=== PATIENT | male | born 1970 | race Asian ===

== ENCOUNTER → 2020-05-21 11:14 | Outpatient (BNVA) | payer BC, SELFPAY | PROVIDERS: PCP Internal Medicine; Referring Provider Internal Medicine; Visit Provider Orthopaedic Surgery | DX: M75.41 Impingement syndrome of right shoulder (principal); M77.11 Lateral epicondylitis, right elbow | CPT/HCPCS: 20610; J1040 ==

== ENCOUNTER → 2020-06-02 15:20 | Outpatient (BNVA) | payer BC, SELFPAY | PROVIDERS: PCP Internal Medicine; Referring Provider Internal Medicine; Visit Provider Nurse Practitioner Family | DX: Z76.89 Persons encountering health services in other specified circumstances (principal) ==

== ENCOUNTER 2020-08-03 10:23 | Day surgery (SDC) | payer BC, SELFPAY ==
[2020-07-29 09:03] VITALS: BMI 31.4
--- NOTE | 2020-08-02 08:40 | P.CONAN_ITS ---
Documented by User: Nayely Cadena 08/02/20 08:41 HPI - Anesthesia Eval Consult details Narrative: 49yo M for Colonoscopy [facility] Past Medical History Medical History Anemia Asthma Malaria Obesity (BMI 30-39.9) Pilonidal cyst with abscess Vitamin B12 deficiency Family History Family History Father Diabetes Hypertension Mother Hypotension Surgical History Surgical History History of meniscectomy of left knee History of pilonidal cyst Hx of tear of meniscus of knee joint Scrotal cyst Social History Social History Are you a primary career placement specialist to a significant other at home: No Do you presently have visiting nurse or other home services: No Alcohol intake: current Alcohol intake frequency: a few times a week Smoking Status: Never smoker Use of substances other than those prescribed or required for medical reasons: No Have you been hit, kicked, punched, or otherwise hurt by someone within the past year? 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 Meds Allergies Allergy/AdvReac Type Severity Reaction Status Date / Time No Known Allergies Allergy Verified 07/29/20 08:50 [No Known Allergies*] Home Medications Medication Instructions Recorded Confirmed Type cetirizine [Zyrtec] 10 mg PO DAILY 07/29/20 07/29/20 History Exam Exam Date and Time: August 02, 2020 0840 Height,Weight and Vital Signs: Height 6 ft Weight 105.233 kg Assessment and Plan Assessment Anesthesia Assessment: Chart Reviewed Documented by User: Ananda Calles 08/03/20 12:49 [facility] Past Medical History Medical History Anemia Asthma Malaria Obesity (BMI 30-39.9) Pilonidal cyst with abscess Vitamin B12 deficiency Family History Family History Father Diabetes Hypertension Mother Hypotension Surgical History Surgical History History of meniscectomy of left knee History of pilonidal cyst Hx of tear of meniscus of knee joint Scrotal cyst Social History Social History Are you a primary career placement specialist to a significant other at home: No Do you presently have visiting nurse or other home services: No Alcohol intake: current Alcohol intake frequency: a few times a week Smoking Status: Never smoker Use of substances other than those prescribed or required for medical reasons: No Have you been hit, kicked, punched, or otherwise hurt by someone within the past year? 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 Meds Allergies Allergy/AdvReac Type Severity Reaction Status Date / Time No Known Allergies Allergy Verified 07/29/20 08:50 [No Known Allergies*] Home Medications Medication Instructions Recorded Confirmed Type cetirizine [Zyrtec] 10 mg PO DAILY 07/29/20 07/29/20 History Exam Airway Mallampati Class: II TM Dist: >3cm Neck ROM: Full Loose/Missing/Broken Teeth: No Heart: rrr+[id number] Lungs: cta b/l Assessment and Plan Assessment Anesthesia Assessment: Anesthesia Plan Discussed and PAT Visit Final Anesthetic Review NPO: Yes ASA Class: II Final Preanesthetic Review: No Changes in Pt Med Stat, Meds/Allgs Chart Reviewed, Consent Obtained/Reviewed and Anes Risks/Benef Reviewed Patient Risk: Low Procedure Risk: Low Assessment/Block/Sedation in SS: Assess/Block/Sedation-SS Anesthetic Plan Anesthetic Plan: MAC: and Agree w/ Assess. and Plan Disposition: Standard PACU
[2020-08-03 11:37] VITALS: BP 119/90; PULSE 67; RESP 18; TEMP 36.2; O2SAT 100
--- NOTE | 2020-08-03 12:59 | P.HPSUR_ITS ---
Pre-Procedural Eval Section B Chief Complaint: screening Relevant Family History (Specify if Yes): No Relevant Social History: None Present Medications: see Short Stay Collaborative assessment Medical History: Significant History (Anemia Asthma Malaria Obesity (BMI 30- 39.9) Pilonidal cyst with abscess Vitamin B12 deficiency) History of Previous Operations: Relevant previous surgery/procedure and date(s) (History of meniscectomy of left knee History of pilonidal cyst Hx of tear of meniscus of knee joint Scrotal cyst) Allergies: Allergies Allergy/AdvReac Type Severity Reaction Status Date / Time No Known Allergies Allergy Verified 07/29/20 08:50 [No Known Allergies*] Review of Systems Sugical H&P ROS: Negative: Constitution, Cardiovascular, Respiratory, Neurological, Psychiatric, Hem-Onc, Allergic/Immunologic, Gastrointestinal, Genitourinary, Musculoskeletal, Integumentary, Endocrine and Eyes/Ears/Nose/Throat Exam Surgical H&P Exam: Normal: HEENT, Normal: Heart, Normal: Lungs, Normal: Extremities, Normal: Abdomen, Normal: Skin and Normal: Neurological Plan Diagnosis/Plan: Unchanged I have reviewed the history and physical and performed a pertinent physical examination on my patient. No changes have occurred unless specified.
--- NOTE | 2020-08-03 13:00 | PM.OP ---
Brief Operative Note Date of Service: 08/03/20 Pre-op diagnosis: colon screen Post-op diagnosis: same Procedure: Operative Information Procedure Description: Colonoscopy COLONOSCOPY Instrument: Olympus variable stiffness pediatric scope 190L Colonoscopy Monitoring: Vital signs and clinical assessment, continuous EKG monitoring, Pulse oximetry, Carbon Dioxide monitoring and blood pressure monitoring were done throughout the procedure. Colon withdrawal time was 9 minutes. Procedure: The patient was placed in the left lateral decubitis position and pre-procedure medications were administered. After a digital rectal examination of the ano-rectum, the video colonoscope was inserted into the rectum and advanced through the colon to the cecum/TI. The colonoscope was slowly withdrawn in a retrograde panoramic fashion and the colon mucosa was carefully examined including a retroflexed view of the rectum. Findings and interventions are described below. Procedure Difficulty:easy Findings: Terminal Ileum-normal Cecum:normal Ascending Colon: normal Transverse Colon -normal Descending Colon: 6-8 mm sessile polyp removed with forceps Sigmoid Colon: normal Rectum: Retroflexion with small internal hemorrhoids, grade I Anorectum - normal Colon preparation: [place] Bowel Preparation Scale Right colon; 2 Transverse colon: 3 Left colon; 2 (0 = Unprepared colon segment with mucosa not seen due to solid stool that cannot be cleared. 1 = Portion of mucosa of the colon segment seen, but other areas of the colon segment not well seen due to staining, residual stool and/or opaque liquid. 2 = Minor amount of residual staining, small fragments of stool and/or opaque liquid, but mucosa of colon segment seen well. 3 = Entire mucosa of colon segment seen well with no residual staining, small fragments of stool or opaque liquid) Impression and Post Procedure Diagnosis: internal hemorrhoids polyp Plan: High fiber diet leaflet Avoid straining at stool, epsom salts and sitz bath, anusol supps or cream Repeat Colonoscopy in 5-7 years if adenoma, 10 yrs if hyperplastic polyp or earlier if clinically indicated Above findings were reviewed with the patient and relevant handouts were provided if indicated. Surgeon: Dylan Solorio MD Anesthesia: MAC Estimated blood loss (mL): 0 Condition: stable Disposition: PACU
[2020-08-03 13:52] VITALS: BP 116/71; PULSE 73; RESP 18; O2SAT 100
[2020-08-03 14:07] VITALS: BP 103/79; PULSE 91; RESP 18; O2SAT 100
--- NOTE | 2020-08-03 14:32 | HO.POSTANES ---
Post Anesthesia Evaluation Post Anesthesia Evaluation Vital Signs: Vital Signs Temp Pulse Resp BP Pulse Ox 08/03/20 14:07 97.2 F 91 18 103/79 100 08/03/20 13:52 73 18 116/71 100 08/03/20 11:37 97.2 F 67 18 119/90 H 100 Anesthesia: Monitored Mental Status: Awake Pain Control: Satisfactory Nausea/Vomiting: None Hydration: Adequate Anesthesia-Related Issues: No Anes. Related Issues
== END 2020-08-03 14:36 | disposition home or self-care (01) ==
PROVIDERS: PCP Internal Medicine; Visit Provider Internal Medicine Gastroenterology
PROC: 0DJD8ZZ Inspection of Lower Intestinal Tract, Via Natural or Artificial Opening Endoscopic (ICD-10-PCS; CPT 45378; principal; 2020-08-03 11:00)
DX: Z12.11 Encounter for screening for malignant neoplasm of colon (principal); D12.4 Benign neoplasm of descending colon; K64.0 First degree hemorrhoids; J45.909 Unspecified asthma, uncomplicated; D64.9 Anemia, unspecified; Z86.13 Personal history of malaria; Z79.899 Other long term (current) drug therapy
CPT/HCPCS: 45380; 88305

== ENCOUNTER 2021-11-30 09:07 | Outpatient (REF) | payer BC, SELFPAY ==
[2021-11-30 09:26] LABS: MANUAL DIFF FLAG NO
[2021-11-30 10:32] LABS: Basophils Absolute Auto 0.1 X10*3/uL (0.0-0.2); Eosinophils Absolute Auto 0.2 X10*3/uL (0.0-0.4); Eosinophils Percent Auto 2.9 % (0-4); Hematocrit 41.8 % (42.0-52.0); Imm Gran Abs Auto 0.03 X10*3/uL (0.00-0.03); Imm Gran Pct Auto 0.4 % (0.0-0.4); Lymphocytes Absolute Auto 2.3 X10*3/uL (1.2-4.9); Lymphocytes Percent Auto 31.9 % (20-40); Mean Corpuscular HGB Conc 33.5 g/dl (31.0-36.0); Mean Corpuscular Hemoglobin 29.4 pg (27.0-33.0); Mean Corpuscular Volume 87.6 fL (80.0-98.0); Mean Platelet Volume 9.8 fL (9.4-12.4); Monocytes Absolute Auto 0.7 X10*3/uL (0.1-1.2); Monocytes Percent Auto 8.9 % (2-11); Neutrophils Percent Auto 54.9 % (45-73); Platelet Count 322 X10*3/uL (160-400); Red Blood Count 4.77 X10*6/uL (4.60-5.80); Red Cell Distribution Width 12.4 % (11.0-16.0); White Blood Count 7.3 X10*3/uL (4.8-10.8)
[2021-11-30 11:20] LABS: Estimated Average Glucose 114 mg/dL; Hemoglobin A1c % 5.6 %
[2021-11-30 11:24] LABS: Alanine Aminotransferase 27 U/L (0-40); Albumin Level 4.3 g/dL (3.5-5.0); Alkaline Phosphatase 60 U/L (39-117); Anion Gap 13 (12-20); Aspartate Amino Transferase 22 U/L (5-37); Bilirubin Total 0.9 mg/dL (0.0-1.0); Blood Urea Nitrogen 13 mg/dL (9-16); Calcium 9.9 mg/dL (8.4-10.2); Carbon Dioxide 29 mmol/L (22-29); Chloride 102 mmol/L (96-108); Cholesterol 203 mg/dL; Estimated Glomerular Filt Rate > 60; Glucose Random 96 mg/dL (60-115); HDL Cholesterol 46 mg/dL; LDL Cholesterol Calculated 145 mg/dl; Potassium 4.7 mmol/L (3.3-5.1); Sodium 139 mmol/L (135-145); Total Protein 7.6 g/dL (6.5-8.0); Triglycerides 63 mg/dL
[2021-11-30 11:32] LABS: Free T4 (Free Thyroxine) 0.95 ng/dL (0.71-1.85); Prostate Specific Antigen Scr 0.34 ng/mL (<0.05-4.0); Thyroid Stimulating Hormone 1.51 uIU/mL (0.32-4.0); Vitamin D 25-OH Total 17.9 ng/mL (>30)
[2021-11-30 11:45] LABS: Folate 7.7 ng/mL (> or = 4.0); Vitamin B12 201 pg/mL (200-900)
[2021-12-06 02:00] LABS: Testosterone, Total 432 ng/dL (250-1100)
== END 2021-11-30 09:08 | disposition home or self-care (01) ==
LOC: HO.LAB 09:07
PROVIDERS: PCP Internal Medicine; Visit Provider Internal Medicine
DX: Z12.5 Encounter for screening for malignant neoplasm of prostate (principal); D51.3 Other dietary vitamin B12 deficiency anemia; E66.9 Obesity, unspecified; L50.8 Other urticaria; E78.00 Pure hypercholesterolemia, unspecified
CPT/HCPCS: 36415; 80053; 80061; 82306; 82607; 82746; 83036; 84153; 84403; 84439; 84443; 85025

== ENCOUNTER 2022-09-05 10:01 | Outpatient (REF) | payer BC, SELFPAY ==
[2022-09-05 10:18] LABS: MANUAL DIFF FLAG NO
[2022-09-05 10:49] LABS: Basophils Absolute Auto 0.1 X10*3/uL (0.0-0.2); Basophils Percent Auto 1.1 % (0-2); Eosinophils Absolute Auto 0.3 X10*3/uL (0.0-0.4); Eosinophils Percent Auto 4.3 % (0-4); Hematocrit 39.3 % (42.0-52.0); Hemoglobin 12.9 g/dl (14.0-18.0); Imm Gran Abs Auto 0.05 X10*3/uL (0.00-0.03); Imm Gran Pct Auto 0.6 % (0.0-0.4); Lymphocytes Absolute Auto 2.8 X10*3/uL (1.2-4.9); Lymphocytes Percent Auto 34.8 % (20-40); Mean Corpuscular HGB Conc 32.8 g/dl (31.0-36.0); Mean Corpuscular Hemoglobin 28.4 pg (27.0-33.0); Mean Corpuscular Volume 86.6 fL (80.0-98.0); Mean Platelet Volume 9.3 fL (9.4-12.4); Monocytes Absolute Auto 0.6 X10*3/uL (0.1-1.2); Monocytes Percent Auto 8.1 % (2-11); Neutrophils Absolute Auto 4.1 x10*3/uL (2.0-8.3); Neutrophils Percent Auto 51.1 % (45-73); Platelet Count 341 X10*3/uL (160-400); Red Blood Count 4.54 X10*6/uL (4.60-5.80); Red Cell Distribution Width 12.7 % (11.0-16.0)
[2022-09-05 10:55] LABS: Estimated Average Glucose 114 mg/dL; Hemoglobin A1c % 5.6 %
[2022-09-05 11:31] LABS: Alanine Aminotransferase 21 U/L (0-40); Alkaline Phosphatase 58 U/L (39-117); Anion Gap 13 (12-20); Aspartate Amino Transferase 16 U/L (5-37); Bilirubin Total 0.4 mg/dL (0.0-1.0); Blood Urea Nitrogen 11 mg/dL (9-16); Calcium 9.2 mg/dL (8.4-10.2); Carbon Dioxide 28 mmol/L (22-29); Chloride 104 mmol/L (96-108); Cholesterol 173 mg/dL; Estimated Glomerular Filt Rate > 60; Glucose Random 94 mg/dL (60-115); HDL Cholesterol 37 mg/dL; LDL Cholesterol Calculated 108 mg/dl; Potassium 4.7 mmol/L (3.3-5.1); Sodium 140 mmol/L (135-145); Total Protein 6.8 g/dL (6.5-8.0); Triglycerides 142 mg/dL
[2022-09-05 12:00] LABS: Folate 5.5 ng/mL (> or = 4.0); Free T4 (Free Thyroxine) 0.88 ng/dL (0.71-1.85); Prostate Specific Antigen Scr 0.39 ng/mL (<0.05-4.0); Thyroid Stimulating Hormone 2.35 uIU/mL (0.32-4.0); Vitamin B12 434 pg/mL (200-900); Vitamin D 25-OH Total 22.2 ng/mL (>30)
[2022-09-05 12:16] LABS: Erythrocyte Sedimentation Rate 9 MM/HR (0-15)
== END 2022-09-05 10:02 | disposition home or self-care (01) ==
LOC: HO.LAB 10:01
PROVIDERS: PCP Internal Medicine; Visit Provider Internal Medicine
DX: D51.3 Other dietary vitamin B12 deficiency anemia (principal); R73.01 Impaired fasting glucose; E53.8 Deficiency of other specified B group vitamins; E78.00 Pure hypercholesterolemia, unspecified; Z12.5 Encounter for screening for malignant neoplasm of prostate
CPT/HCPCS: 36415; 80053; 80061; 82306; 82607; 82746; 83036; 84153; 84439; 84443; 85025; 85652

== ENCOUNTER 2023-09-13 08:35 | Outpatient (REF) | payer BC, SELFPAY ==
[2023-09-13 08:50] LABS: MANUAL DIFF FLAG NO
[2023-09-13 09:36] LABS: Basophils Absolute Auto 0.1 X10*3/uL (0.0-0.2); Basophils Percent Auto 1.1 % (0-2); Eosinophils Absolute Auto 0.3 X10*3/uL (0.0-0.4); Eosinophils Percent Auto 3.8 % (0-4); Hematocrit 41.7 % (42.0-52.0); Hemoglobin 13.9 g/dl (14.0-18.0); Imm Gran Abs Auto 0.02 X10*3/uL (0.00-0.03); Imm Gran Pct Auto 0.3 % (0.0-0.4); Immature Retic Fraction 9.5 % (2.3-13.4); Lymphocytes Absolute Auto 2.5 X10*3/uL (1.2-4.9); Lymphocytes Percent Auto 35.3 % (20-40); Mean Corpuscular HGB Conc 33.3 g/dl (31.0-36.0); Mean Corpuscular Hemoglobin 29.8 pg (27.0-33.0); Mean Corpuscular Volume 89.3 fL (80.0-98.0); Monocytes Absolute Auto 0.6 X10*3/uL (0.1-1.2); Monocytes Percent Auto 8.1 % (2-11); Neutrophils Absolute Auto 3.6 x10*3/uL (2.0-8.3); Neutrophils Percent Auto 51.4 % (45-73); Platelet Count 305 X10*3/uL (160-400); Red Blood Count 4.67 X10*6/uL (4.60-5.80); Red Cell Distribution Width 12.3 % (11.0-16.0); Retic HGB Equivalent 34.6 pg (30.0-35.0); Reticulocyte Percent 1.3 % (0.5-1.8); White Blood Count 7.1 X10*3/uL (4.8-10.8)
[2023-09-13 10:10] LABS: Alanine Aminotransferase 25 U/L (0-40); Albumin Level 4.3 g/dL (3.5-5.0); Alkaline Phosphatase 63 U/L (39-117); Anion Gap 11 (12-20); Aspartate Amino Transferase 17 U/L (5-37); Bilirubin Total 0.5 mg/dL (0.0-1.0); Blood Urea Nitrogen 12 mg/dL (9-16); Calcium 9.3 mg/dL (8.4-10.2); Carbon Dioxide 28 mmol/L (22-29); Chloride 106 mmol/L (96-108); Cholesterol 200 mg/dL (<200); Estimated Glomerular Filt Rate > 60; Glucose Random 105 mg/dL (60-115); HDL Cholesterol 44 mg/dL (>40); Iron 98 mcg/dL (45-160); LDL Cholesterol Calculated 137 mg/dL (<100); Percent Iron Saturation 34 % (15-50); Potassium 4.7 mmol/L (3.3-5.1); Sodium 140 mmol/L (135-145); Total Iron Binding Capacity 292 mcg/dL (228-428); Total Protein 7.6 g/dL (6.5-8.0); Triglycerides 98 mg/dL (<150); Unsaturated Iron Binding 194 ug/dL
[2023-09-13 10:30] LABS: Ferritin 161 ng/mL (20-250); Free T4 (Free Thyroxine) 0.94 ng/dL (0.71-1.85); Thyroid Stimulating Hormone 2.24 uIU/mL (0.32-4.0)
[2023-09-13 10:39] LABS: Folate 7.3 ng/mL (> or = 4.0); Prostate Specific Antigen Scr 0.52 ng/mL (<0.05-4.0); Vitamin B12 309 pg/mL (200-900)
== END 2023-09-13 08:36 | disposition home or self-care (01) ==
LOC: HO.LAB 08:35
PROVIDERS: PCP Internal Medicine; Visit Provider Internal Medicine
DX: E78.00 Pure hypercholesterolemia, unspecified (principal); D51.3 Other dietary vitamin B12 deficiency anemia; Z12.5 Encounter for screening for malignant neoplasm of prostate
CPT/HCPCS: 36415; 80053; 80061; 82607; 82728; 82746; 83540; 84153; 84439; 84443; 85025; 85045

== ENCOUNTER 2023-09-17 17:33 | Outpatient (AMB) | payer BC, SELFPAY ==
--- NOTE | 2023-09-17 17:36 | MHC.PC.OV ---
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 Accompanied by: Self / Same As Patient Allergies No Known Allergies [No Known Allergies*] Allergy (Verified 09/17/23 17:43) Medication List - Last Reconciled 09/17/23 by Radha Wood MD ferrous gluconate (Fergon) 240 mg PO DAILY Tobacco use date assessed: 09/17/23 Dental Screening Dental Screen Date: 09/17/23 Did you have a dental visit in the last 12 months?: Yes Did you have a dental problem in the last 6 months where you did not have access to dental care?: No Was dental information given to patient?: Patient has dentist HPI Annual PE HPI Details 52-year-old obese male with a history of hypercholesterolemia , B12 deficiency, vitamin-D deficiency chronic urticaria coming in for physical exam last seen last year in August. Patient's last colonoscopy was done in July 2020 5 years. [facility] Medical History (Updated 09/04/22 @ 17:41 by Radha Wood MD) Lateral epicondylitis, right elbow Rotator cuff impingement syndrome of right shoulder Shoulder pain, right Allergic reaction Obesity (BMI 30-39.9) Anemia Annual physical exam Vitamin B12 deficiency Pilonidal cyst with abscess Malaria Asthma Surgical History Scrotal cyst History of pilonidal cyst History of meniscectomy of left knee Hx of tear of meniscus of knee joint Family History Father Diabetes Hypertension Mother Hypotension Daughter Bipolar 1 disorder Social History (Updated 09/17/23 @ 18:07 by Radha Wood MD) Housing: House Are you a primary director of healthcare systems to a significant other at home: No Do you presently have visiting nurse or other home services: No Alcohol intake: current Alcohol intake frequency: a few times a week Comment: 2x a week 1-2 drinks Patient Tobacco Use Status: Former Tobacco user Tobacco use type: Cigarette Years Smoked: quit 1999 e-Cigarette/Vaping Use: Never Used Second Hand Smoke Exposure: No service: No Current occupational status: employed 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 1. Little interest or pleasure in doing things: not at all 2. Feeling down, depressed, or hopeless: not at all 3. Trouble falling or staying asleep, or sleeping too much: not at all 4. Feeling tired or having little energy: not at all 5. Poor appetite or overeating: not at all 6. Feeling bad about yourself - or that you are a failure or have let yourself or your family down: not at all 7. Trouble concentrating on things, such as reading the newspaper or watching television: not at all 8. Moving or speaking so slowly that other people could have noticed. Or the opposite - being so fidgety or restless that you have been moving around a lot more than usual: not at all 9. Thoughts that you would be better off or of hurting yourself in some way: not at all Total score: 0 Source: Developed by Drs. Marvin Gomez, Sharon Meneses, Rolando Ceron and colleagues, with an educational aditi from [employer]. Thrive Questionnaire Date Thrive assessed: 09/17/23 I am a: Patient What is your living situation today?: I have a steady place to live Within the past 12 months, did the food you bought not last and you didn't have the money to get more?: Never true Within the past 12 months, did you worry whether your food would run out before you got money to buy more?: Never true Do you have trouble paying for medicines?: No Do you have trouble getting transportation to medical appointments?: No Do you have trouble paying your heating and electricity bill?: No Do you have trouble taking care of your child, family member or friend?: No Do you have trouble with day-to-day activities such as bathing, preparing meals, shopping, managing finances, etc.?: No Are you currently unemployed and looking for a job?: No Are you interested in more education?: No Please select the resources that you would like help with: None Currently or been in a relationship where the following occur: no concerns reported THRIVE Score: 0 AUDIT C Alcohol Use Questionnaire (AUDIT-C) 1. How often do you have a drink containing alcohol?: Monthly or less 2. How many drinks containing alcohol do you have on a typical day when you are drinking?: 1 or 2 3. How often do you have six or more drinks on one occasion?: Never Total Score: 1 TON-7 AMB Questionnaire TON-7 Date TON - 7 assessed: 09/17/23 Feeling nervous, anxious, or on edge: 0 = Not at all Not being able to stop or control worryin = Not at all Worrying too much about different things: 0 = Not at all Trouble relaxin = Not at all Being so restless that it is hard to sit still: 0 = Not at all Becoming easily annoyed or irritable: 0 = Not at all Feeling afraid as if something awful might happen: 0 = Not at all Total TON-7 score (0-4 normal; 5-9 mild; 10-14 moderate; 15-21 severe): 0 Source: Developed by Drs. Marvin Gomez, Sharon Meneses, Rolando Ceron and colleagues, with an educational aditi from [employer]. Review of Systems Const Denies poor appetite and Denies weakness Eyes Denies no additional complaints ENT Reports Normal hearing present, Denies dizziness, Denies nasal congestion, Denies tinnitus and Denies sore throat Card Denies chest pain, Denies syncope, Denies rapid heart rate and Denies dyspnea Resp Denies cough and Denies dyspnea GI Denies change in stool character, Reports constipation, Denies diarrhea, Denies nausea and Denies vomiting Denies dysuria and Denies urinary frequency Neuro Reports Normal hearing present, Denies confusion, Denies dizziness, Denies syncope and Denies weakness Psych Denies confusion Physical exam (Primary Care) Vital Signs: Last Vital Signs BP 130/82 09/17/23 17:40 BMI result Body Mass Index 31.6 Tobacco/Smoking Status: Tobacco use Status Tobacco use date assessed 09/17/23 09/17/23 17:46 Patient Tobacco Use Status Former Tobacco user 09/17/23 17:40 Tobacco use type Cigarette 09/17/23 17:40 e-Cigarette/Vaping Use Never Used 09/17/23 17:40 PHQ-9: PHQ-9 Score PHQ-9: Total score 0 09/17/23 17:40 Thrive Assessment: Date of Thrive Assessment Date Thrive assessed 09/17/23 09/17/23 17:40 Currently or been in a relationship where the following occur: no concerns reported Const General: alert; No acute distress or confusion Orientation/consciousness: No confusion HENMT Head: Yes normocephalic Ears: external ears normal and TM's normal bilaterally Face and sinus: Yes normal facial exam Mouth: moist mucous membranes Throat: Yes tonsils normal Eyes Conjunctivae: conjunctivae normal Pupils: Equal, round and reactive pupils present and Pupil accommodation reflex normal Direct Ophthalmoscopy: normal light reflex Neck Neck: No lymphadenopathy Thyroid: Thyroid normal Chest Chest palpation & inspection: normal inspection of the chest Resp Effort & Inspection: normal respiratory effort and no audible wheezes Auscultation: clear to auscultation bilaterally Cardio Rate: regular rate Rhythm: regular rhythm Peripheral pulses: radial pulses present and dorsalis pedis present GI Other: guaiac negative , prostate N Inspection: Yes normal to inspection Palpation (GI): no masses Auscultation: normal bowel sounds and normoactive bowel sounds Male General Exam: Yes normal external exam Skin General skin exam: no rashes or lesions noted Rashes: no rashes Neuro General: deep tendon reflexes 2+ bilaterally and No confusion Cranial nerves: Yes Equal, round and reactive pupils present, Yes Midline tongue present, Yes Normal hearing present and Yes Ability to bilaterally elevate shoulders present Cognition (Neuro): normal cognition Gait exam (Neuro): Normal gait present Motor exam (neuro): 5/5 motor strength present throughout Deep tendon reflexes (DTR's): Right brachioradialis reflex intensity grade: 2+, Left brachioradialis reflex intensity grade: 2+, Right patellar reflex intensity grade: 2+ and Left patellar reflex intensity grade: 2+ Extrem General: Yes normal to inspection and No edema Assessment and Plan Assessment & Plan (1) Annual physical exam: Code(s): Z00.00 - Encounter for general adult medical examination without abnormal findings (2) Impaired fasting blood sugar: Code(s): R73.01 - Impaired fasting glucose Plan: Decrease the amount of carbohydrate intake, pasta, bread, rice and potatoes are all sugar and that is aside from all the sweet stuff, remember that fruits are good but they are Sweet also. (3) Hypercholesteremia: Code(s): E78.00 - Pure hypercholesterolemia, unspecified Plan: Avoid fried foods, chicken skin, eggs, butter margarine, pastries and meat. Be it pork or beef they have a lot of cholesterol LDL goal of less than 130 and triglyceride of less than 150 (4) Anemia: Code(s): D64.9 - Anemia, unspecified Qualifiers: Anemia type: B12 deficiency Vitamin B12 deficiency anemia type: other dietary B12 deficiency Qualified Code(s): D51.3 - Other dietary vitamin B12 deficiency anemia Plan: Chronic and improved/stable (5) Obesity (BMI 30-39.9): Code(s): E66.9 - Obesity, unspecified Plan: Diet and exercise Orders: Orders Complete Blood Count Auto Diff 09/13/23 E78.00 - Pure hypercholesterolemia, unspecified Free T4 (Free Thyroxine) 09/13/23 E78.00 - Pure hypercholesterolemia, unspecified Reticulocyte Count 09/13/23 E78.00 - Pure hypercholesterolemia, unspecified Complete Blood Count Auto Diff 6 Months D51.3 - Other dietary vitamin B12 deficiency anemia Thyroid Stimulating Hormone 09/13/23 E78.00 - Pure hypercholesterolemia, unspecified Vitamin B12 and Folate 09/13/23 E78.00 - Pure hypercholesterolemia, unspecified Lipid Panel 09/13/23 E78.00 - Pure hypercholesterolemia, unspecified IRON PROFILE 09/13/23 E78.00 - Pure hypercholesterolemia, unspecified Ferritin 09/13/23 E78.00 - Pure hypercholesterolemia, unspecified Prostate Specific Antigen Scr 09/13/23 E78.00 - Pure hypercholesterolemia, unspecified Comprehensive Met. Panel 09/13/23 E78.00 - Pure hypercholesterolemia, unspecified Hemoglobin A1c 6 Months E78.00 - Pure hypercholesterolemia, unspecified Comprehensive Met. Panel 6 Months E78.00 - Pure hypercholesterolemia, unspecified Lipid Panel 6 Months E78.00 - Pure hypercholesterolemia, unspecified Coding Level of Care Code Est Pt Prev Care 40-64y([id number]) Diagnoses Annual physical exam Z00.00 Impaired fasting blood sugar R73.01 Hypercholesteremia E78.00 Other dietary vitamin B12 deficiency anemia D51.3 Anemia type: B12 deficiency Vitamin B12 deficiency anemia type: other dietary B12 deficiency Obesity (BMI 30-39.9) E66.9
[2023-09-17 17:40] VITALS: BP 130/82; BMI 31.6
== END 2023-09-17 18:27 | disposition home or self-care (01) ==
PROVIDERS: Visit Provider Internal Medicine
DX: Z00.00 Encounter for general adult medical examination without abnormal findings (principal); E66.9 Obesity, unspecified; Z68.31 Body mass index [BMI] 31.0-31.9, adult; R73.01 Impaired fasting glucose; E78.00 Pure hypercholesterolemia, unspecified; D51.3 Other dietary vitamin B12 deficiency anemia
CPT/HCPCS: 99396

== ENCOUNTER 2024-04-01 09:51 | Outpatient (REF) | payer BC, SELFPAY ==
[2024-04-01 10:02] LABS: MANUAL DIFF FLAG NO
[2024-04-01 10:54] LABS: Basophils Absolute Auto 0.1 X10*3/uL (0.0-0.2); Basophils Percent Auto 1.2 % (0-2); Eosinophils Absolute Auto 0.3 X10*3/uL (0.0-0.4); Eosinophils Percent Auto 3.4 % (0-4); Hematocrit 39.6 % (42.0-52.0); Hemoglobin 13.6 g/dl (14.0-18.0); Imm Gran Abs Auto 0.05 X10*3/uL (0.00-0.03); Imm Gran Pct Auto 0.7 % (0.0-0.4); Lymphocytes Absolute Auto 2.8 X10*3/uL (1.2-4.9); Lymphocytes Percent Auto 36.3 % (20-40); Mean Corpuscular HGB Conc 34.3 g/dl (31.0-36.0); Mean Corpuscular Volume 87.4 fL (80.0-98.0); Mean Platelet Volume 9.6 fL (9.4-12.4); Monocytes Absolute Auto 0.6 X10*3/uL (0.1-1.2); Monocytes Percent Auto 7.2 % (2-11); Neutrophils Absolute Auto 3.9 x10*3/uL (2.0-8.3); Neutrophils Percent Auto 51.2 % (45-73); Platelet Count 318 X10*3/uL (160-400); Red Blood Count 4.53 X10*6/uL (4.60-5.80); Red Cell Distribution Width 11.9 % (11.0-16.0); White Blood Count 7.6 X10*3/uL (4.8-10.8)
[2024-04-01 11:27] LABS: Estimated Average Glucose 117 mg/dL; Hemoglobin A1c % 5.7 % (<6.0)
[2024-04-01 11:49] LABS: Alanine Aminotransferase 25 U/L (0-40); Albumin Level 4.1 g/dL (3.5-5.0); Alkaline Phosphatase 56 U/L (39-117); Anion Gap 10 (12-20); Aspartate Amino Transferase 18 U/L (5-37); Bilirubin Total 0.4 mg/dL (0.0-1.0); Blood Urea Nitrogen 9 mg/dL (9-16); Calcium 9.2 mg/dL (8.4-10.2); Carbon Dioxide 27 mmol/L (22-29); Chloride 105 mmol/L (96-108); Cholesterol 162 mg/dL (<200); Estimated Glomerular Filt Rate > 60; Glucose Random 98 mg/dL (60-115); HDL Cholesterol 33 mg/dL (>40); LDL Cholesterol Calculated 100 mg/dL (<100); Potassium 4.3 mmol/L (3.3-5.1); Sodium 138 mmol/L (135-145); Total Protein 7.2 g/dL (6.5-8.0); Triglycerides 145 mg/dL (<150)
== END 2024-04-01 09:52 | disposition home or self-care (01) ==
LOC: HO.LAB 09:51
PROVIDERS: PCP Internal Medicine; Visit Provider Internal Medicine
DX: D51.3 Other dietary vitamin B12 deficiency anemia (principal); E78.00 Pure hypercholesterolemia, unspecified; Z13.1 Encounter for screening for diabetes mellitus
CPT/HCPCS: 36415; 80053; 80061; 83036; 85025

== ENCOUNTER 2024-09-22 17:37 | Outpatient (AMB) | payer BC, SELFPAY ==
[2024-09-22 17:39] VITALS: BP 118/86; PULSE 96; O2SAT 97; BMI 31.6
--- NOTE | 2024-09-22 17:39 | A.OFFPC_ITS ---
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 Required: No Accompanied by: Self / Same As Patient Allergies No Known Allergies [No Known Allergies*] Allergy (Verified 09/22/24 17:46) Medication List - Last Reconciled 09/22/24 by Radha Wood MD cholecalciferol (vitamin D3) 25 mcg PO DAILY ferrous gluconate 236 mg PO DAILY varicella-zoster gE-AS01B (PF) 50 mcg/0.5 mL (Shingrix (PF)) 50 mcg IM ONCE 1 day vitamin B complex 1 cap PO DAILY Tobacco use date assessed: 09/22/24 Dental Screening Dental Screen Date: 09/22/24 Did you have a dental visit in the last 12 months?: Yes Did you have a dental problem in the last 6 months where you did not have access to dental care?: No Was dental information given to patient?: Patient has dentist HPI annual exam HPI Details occ l knee pain PFSH Medical History (Updated 09/04/22 @ 17:41 by Radha Wood MD) Lateral epicondylitis, right elbow Rotator cuff impingement syndrome of right shoulder Shoulder pain, right Allergic reaction Obesity (BMI 30-39.9) Anemia Annual physical exam Vitamin B12 deficiency Pilonidal cyst with abscess [place] Asthma Surgical History Scrotal cyst History of pilonidal cyst History of meniscectomy of left knee Hx of tear of meniscus of knee joint Family History Father Diabetes Hypertension Mother Hypotension Daughter Bipolar 1 disorder Social History (Updated 09/22/24 @ 17:59 by Radha Wood MD) Housing: House Are you a primary medicare sales representative to a significant other at home: No Do you presently have visiting nurse or other home services: No Alcohol intake: current Alcohol intake frequency: a few times a week Comment: once a week 2 drinks Patient Tobacco Use Status: Former Tobacco user Tobacco use type: Cigarette Years Smoked: quit 1999 e-Cigarette/Vaping Use: Never Used Second Hand Smoke Exposure: No service: No Current occupational status: employed 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 1. Little interest or pleasure in doing things: not at all 2. Feeling down, depressed, or hopeless: not at all 3. Trouble falling or staying asleep, or sleeping too much: not at all 4. Feeling tired or having little energy: not at all 5. Poor appetite or overeating: not at all 6. Feeling bad about yourself - or that you are a failure or have let yourself or your family down: not at all 7. Trouble concentrating on things, such as reading the newspaper or watching television: not at all 8. Moving or speaking so slowly that other people could have noticed. Or the opposite - being so fidgety or restless that you have been moving around a lot more than usual: not at all 9. Thoughts that you would be better off or of hurting yourself in some way: not at all Total score: 0 Depression Screening Interpretation: Negative Depression Screening Done: Yes Source: Developed by Drs. Marvin Gomez, Sharon Meneses, Rolando Ceron and colleagues, with an educational aditi from [employer]. Thrive Questionnaire Date Thrive assessed: 09/15/24 I am a: Patient What is your living situation today?: I have a steady place to live Within the past 12 months, did the food you bought not last and you didn't have the money to get more?: Never true Within the past 12 months, did you worry whether your food would run out before you got money to buy more?: Never true Do you have trouble paying for medicines?: No Do you have trouble getting transportation to medical appointments?: No Do you have trouble paying your heating and electricity bill?: No Do you have trouble taking care of your child, family member or friend?: No Do you have trouble with day-to-day activities such as bathing, preparing meals, shopping, managing finances, etc.?: No Are you currently unemployed and looking for a job?: No Are you interested in more education?: No Please select the resources that you would like help with: None Currently or been in a relationship where the following occur: No concerns reported THRIVE Score: 0 AUDIT C Alcohol Use Questionnaire (AUDIT-C) 1. How often do you have a drink containing alcohol?: 2-3 times a week 2. How many drinks containing alcohol do you have on a typical day when you are drinking?: 1 or 2 3. How often do you have six or more drinks on one occasion?: Never Total Score: 3 TON-7 AMB Questionnaire TON-7 Date TON - 7 assessed: 09/22/24 Feeling nervous, anxious, or on edge: 0 = Not at all Not being able to stop or control worryin = Not at all Worrying too much about different things: 0 = Not at all Trouble relaxin = Not at all Being so restless that it is hard to sit still: 0 = Not at all Becoming easily annoyed or irritable: 0 = Not at all Feeling afraid as if something awful might happen: 0 = Not at all Total TON-7 score (0-4 normal; 5-9 mild; 10-14 moderate; 15-21 severe): 0 Source: Developed by Drs. Marvin Gomez, Sharon Meneses, Rolando Ceron and colleagues, with an educational aditi from [employer]. Review of Systems Const Denies poor appetite and Denies weakness Eyes Denies no additional complaints ENT Reports Normal hearing present, Denies dizziness, Denies nasal congestion, Denies tinnitus and Denies sore throat Card Denies chest pain, Denies syncope, Denies rapid heart rate and Denies dyspnea Resp Denies cough and Denies dyspnea GI Denies change in stool character, Reports constipation, Denies diarrhea, Denies nausea and Denies vomiting Denies dysuria and Denies urinary frequency Neuro Reports Normal hearing present, Denies confusion, Denies dizziness, Denies s yncope and Denies weakness Psych Denies confusion Physical exam (Primary Care) Tobacco/Smoking Status: Tobacco use Status Tobacco use date assessed 09/17/23 09/17/23 17:46 Patient Tobacco Use Status Former Tobacco user 09/17/23 18:07 Tobacco use type Cigarette 09/17/23 18:07 e-Cigarette/Vaping Use Never Used 09/17/23 18:07 Depression Screening Interpretation: Negative Thrive Assessment: Date of Thrive Assessment Date Thrive assessed 09/15/24 09/15/24 12:01 Currently or been in a relationship where the following occur: No concerns reported Const General: No confusion Orientation/consciousness: No confusion HENMT Head: Yes normocephalic Ears: external ears normal and TM's normal bilaterally Face and sinus: Yes normal facial exam Mouth: moist mucous membranes Throat: Yes tonsils normal Eyes Conjunctivae: conjunctivae normal Pupils: Equal, round and reactive pupils present and Pupil accommodation reflex normal Direct Ophthalmoscopy: normal light reflex Neck Neck: No lymphadenopathy Thyroid: Thyroid normal Chest Chest palpation & inspection: normal inspection of the chest Resp Effort & Inspection: normal respiratory effort and no audible wheezes Auscultation: clear to auscultation bilaterally, no crackles, no wheezes and lung sounds not diminished Cardio Rate: regular rate Rhythm: regular rhythm Peripheral pulses: radial pulses present and dorsalis pedis present GI Other: guaiac neg prostate N Palpation (GI): no masses Auscultation: normal bowel sounds and normoactive bowel sounds Male General Exam: Yes normal external exam Skin General skin exam: no rashes or lesions noted Rashes: no rashes Neuro General: No confusion Cranial nerves: Yes Equal, round and reactive pupils present and Yes Normal hearing present Cognition (Neuro): normal cognition Gait exam (Neuro): Normal gait present Motor exam (neuro): 5/5 motor strength present throughout Deep tendon reflexes (DTR's): Right brachioradialis reflex intensity grade: 2+, Left brachioradialis reflex intensity grade: 2+, Right patellar reflex intensity grade: 2+ and Left patellar reflex intensity grade: 2+ Extrem General: No edema Coding Level of Care Code Est Pt Prev Care 40-64y(55356) Diagnoses Annual physical exam Z00.00 Obesity (BMI 30-39.9) E66.9 Other dietary vitamin B12 deficiency anemia D51.3 Anemia type: B12 deficiency Vitamin B12 deficiency anemia type: other dietary B12 deficiency Impaired fasting blood sugar R73.01 Hypercholesteremia E78.00 Assessment & Plan Assessment & Plan (1) Annual physical exam: Code(s): Z00.00 - Encounter for general adult medical examination without abnormal findings Category: Medical Plan: Patient is advised to eat healthy, keep well hydrated, keep active and have adequate sleep. (2) Obesity (BMI 30-39.9): Code(s): E66.9 - Obesity, unspecified Category: Medical Plan: Diet and exercise (3) Anemia: Code(s): D64.9 - Anemia, unspecified Category: Medical Qualifiers: Anemia type: B12 deficiency Vitamin B12 deficiency anemia type: other dietary B12 deficiency Qualified Code(s): D51.3 - Other dietary vitamin B12 deficiency anemia Plan: Continue to monitor (4) Impaired fasting blood sugar: Code(s): R73.01 - Impaired fasting glucose Category: Medical Plan: Decrease the amount of carbohydrate intake, pasta, bread, rice and potatoes are all sugar and that is aside from all the sweet stuff, remember that fruits are good but they are Sweet also. (5) Hypercholesteremia: Code(s): E78.00 - Pure hypercholesterolemia, unspecified Category: Medical Plan: Avoid fried foods, chicken skin, eggs, butter margarine, pastries and meat. Be it pork or beef they have a lot of cholesterol LDL goal of less than 130 and triglyceride of less than 150. This has improved Plan History of Present Illness The patient is a 53-year-old male presenting for his annual physical examination and addressing concerns about potential repeat knee surgery. His medical history includes obesity, chronic anemia, hypercholesterolemia, glucose tolerance a bnormality, and chronic urticaria. A recent blood test indicated mild chronic anemia, but liver function, platelet count, white blood cell count, electrolyte levels, and fasting blood sugar were normal. Hemoglobin A1c was marginally elevated, and cholesterol levels showed improvement, with LDL reduced to 100 mg/dL. His left knee, which underwent a meniscus repair about five years ago, continues to experience swelling and pain, suggesting the potential need for revision surgery. The patient supplements his diet with iron and vitamin D but denies any medication use. Health Maintenance - Cholesterol management with a focus on maintaining LDL levels below 130 mg/dL and triglycerides below 150 mg/dL. - Continued dietary interventions and exercise encouraged for weight management and glucose regulation. - Discussion on the shingles vaccine (Shingrix), indicating its administration typically begins at age 60 but could be considered earlier in specific cases. - Encouraged the patient to stay hydrated, drink 6-8 glasses of water daily, and maintain a balanced diet. - Recommended regular physical activity and exercise irrespective of weather changes. - Suggestion for an eye examination, as it has been two years since the last. - Awareness of norovirus and necessary hygiene practices to mitigate colds. Social History - Alcohol: Consumes alcohol once a week, averaging two drinks per session. - Tobacco: No current use of cigarettes. - Recreational Drugs: Denies use. - Physical Activity: Previously active, but currently less engaged; owns home gym equipment and cycling gear. - Nutrition: Uses vitamin and iron supplements; adheres to dietary interventions as part of the wellness plan. Review of Systems - General: Denies fever, chills, or significant weight change. - Skin: No rashes or lesions reported. - Cardiovascular: Denies chest pain or palpitations. - Respiratory: Denies dyspnea or persistent cough. - Gastrointestinal: No nausea, vomiting, diarrhea, or constipation. - Musculoskeletal: Reports swelling and possible need for further intervention on the left knee. - Neurological: Denies dizziness, headache, or sensory changes. Physical Exam General: Cooperative, healthy appearing, comfortable, no acute distress and well developed Orientation: Patient oriented x3 Limitations: No limitations Head: Normal to inspection Ears: Hearing grossly normal bilaterally Nose: Normal external nose present Face and sinus: Normal facial exam Eyes: Appearance normal, both eyes and all related structures Neck: Normal visual inspection and Yes full ROM Respiratory: Normal respiratory effort and able to speak in complete sentences. Clear to auscultation bilaterally Cardiovascular: Regular rate and rhythm. Normal S1 and S2 GI: Normal to inspection. Soft to palpation and nontender Skin: No rashes or lesions noted Neuro: Patient oriented x3 Extremities: Normal to inspection, but noted swelling in the left knee, possibly requiring further evaluation. Results - Labs: Mild chronic anemia present; normal platelet, white blood cells, electrolytes, liver function; fasting blood sugar of 98 mg/dL; border hemoglobin A1c at 5.7%; total cholesterol reduced to 162 mg/dL; LDL at 100 mg/dL. Plan I will continue to monitor the patient's chronic anemia with routine blood work. While managing his cholesterol, I will keep up with dietary interventions and his wellness plan. Concerning potential meniscus re-surgery, I've referred him to orthopedics for evaluation. I have advised the patient to consider the Shingrix vaccine upon confirming with his insurance coverage. His blood work aligns with our health maintenance goals, remaining focused on his anemia and cholesterol levels. He will continue with his current supplements, ensuring accuracy in taking B-complex, iron, and vitamin D. Patient was informed and verbally consented to the use of an ambient scribe for clinic note documentation during this visit. Discussion Notes I discussed the patient's chronic anemia and its current stability, affirming the progress seen in cholesterol management. I advised maintaining a structured diet and exercise routine to control glucose and weight. I reviewed the potential benefits of receiving the Shingrix vaccine earlier than 60, dependent on insurance coverage. During our discussion, we emphasized continued physical activity and adherence to nutritional supplements. I arranged a referral to orthopedics to address his persistent knee issues and potential surgery needs. We also planned follow-up tests in the upcoming months to monitor ongoing concerns. Patient Instructions - Continue iron and vitamin D supplementation at the prescribed doses. - Follow a balanced diet with adequate hydration and maintain regular exercise. - Monitor symptoms related to anemia or blood glucose changes. - Await a call from the orthopedic clinic for a knee evaluation. - Consult insurance regarding shingles vaccination coverage. - Return for follow-up lab tests in a few months. - Seek medical care if experiencing any new or worsening symptoms. Orders: Orders Complete Blood Count Auto Diff 5 Months R73.01 - Impaired fasting glucose Free T4 (Free Thyroxine) 5 Months R73.01 - Impaired fasting glucose Vitamin B12 and Folate 5 Months R73.01 - Impaired fasting glucose Hemoglobin A1c 5 Months R73.01 - Impaired fasting glucose Comprehensive Met. Panel 5 Months R73.01 - Impaired fasting glucose Lipid Panel 5 Months E78.00 - Pure hypercholesterolemia, unspecified, R73.01 - Impaired fasting glucose Thyroid Stimulating Hormone 5 Months R73.01 - Impaired fasting glucose Prostate Specific Antigen Scr 5 Months R73.01 - Impaired fasting glucose Referrals Orthopedics Referral Z98.890 - Other specified postprocedural states Medications: New varicella-zoster gE-AS01B (PF) 50 mcg/0.5 mL (Shingrix (PF)) 50 mcg IM ONCE 1 day 1 ea 0RF
== END 2024-09-22 18:18 | disposition home or self-care (01) ==
PROVIDERS: PCP Internal Medicine; Visit Provider Internal Medicine
DX: Z00.00 Encounter for general adult medical examination without abnormal findings (principal); E66.9 Obesity, unspecified; Z68.31 Body mass index [BMI] 31.0-31.9, adult; D51.3 Other dietary vitamin B12 deficiency anemia; R73.01 Impaired fasting glucose; E78.00 Pure hypercholesterolemia, unspecified

== ENCOUNTER 2024-11-12 08:04 | Outpatient (REF) | payer BC, SELFPAY ==
--- NOTE | ~2024-11-12 | XR_ITS ---
EXAMINATION: XR KNEE, LEFT CLINICAL INFORMATION: M25.569 - Pain in unspecified knee COMPARISON: 02/27/2020. TECHNIQUE: AP view bilateral knees standing, lateral and patellofemoral views left knee. FINDINGS: Right Knee: Mild medial compartment joint space narrowing. Normal alignment. No bone lesion or fracture. Normal soft tissues. Left Knee: No fracture, dislocation, or suspicious bone lesion. Mild to moderate medial compartment and mild patellofemoral compartment joint space narrowing with minimal associated osteophytic spurring marginally. Mild spurring of the tibial spines. Small superior patellar enthesophyte. No joint effusion. Normal soft tissues. XR/XR knee LT 3V IMPRESSION: 1. Mild to moderate medial compartment and mild lateral and patellofemoral compartment osteoarthritis of the left knee. Electronically signed by: Parish Glaser MD 11/14/2024 09:53 AM EDT
--- OUTSIDE RECORDS SUMMARY | 2024-11-12 08:11 | XMS_ITS ---
Author Name [facility] Organization Unknown Care Team Organization Name Specialty Phone Email Start Date End [facility]
== END 2024-11-12 08:05 | disposition home or self-care (01) ==
LOC: HO.HOSX 08:04
PROVIDERS: Visit Provider Physician Assistant
DX: M17.12 Unilateral primary osteoarthritis, left knee (principal)
CPT/HCPCS: 73562

== ENCOUNTER 2024-11-12 13:09 | Outpatient (AMB) | payer BC, SELFPAY ==
--- NOTE | 2024-11-12 13:24 | A.OFFVIS_ITS ---
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 Hx of left knee meniscectomy 02/2020. Patient was last seen with [facility] for his right shoulder. He states that his pain has been going on for a couple months with his pain. Patient reports that his pain is worse when he is walking, going up and down the stairs and walking on a incline. He states that his pain is on the medial aspect of the knee. 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 Medrano this is a 54-year-old male who presents to the office today for evaluation of left knee discomfort. He reports that he had a prior left knee pa rtial meniscectomy performed in February of 2020. Ever since his arthroscopy he reports that the discomfort fluctuates based off of activity levels and he has noticed an increase in waxing and waning edema. He reports that the pain is located along the medial aspect of the knee and is worse with ambulation, walking on incline and going up and downstairs. [facility] Medical History (Updated 11/12/24 @ 14:12 by Makayla Gentile PA-C) Lateral epicondylitis, right elbow Rotator cuff impingement syndrome of right shoulder Shoulder pain, right Allergic reaction Obesity (BMI 30-39.9) Anemia Annual physical exam Vitamin B12 deficiency Pilonidal cyst with abscess [place] Asthma Surgical History Scrotal cyst History of pilonidal cyst History of meniscectomy of left knee Hx of tear of meniscus of knee joint Family History Father Diabetes Hypertension Mother Hypotension Daughter Bipolar 1 disorder Social History Housing: House Are you a primary career development coordinator/teacher to a significant other at home: No Do you presently have visiting nurse or other home services: No Alcohol intake: current Alcohol intake frequency: a few times a week Comment: once a week 2 drinks Patient Tobacco Use Status: Former Tobacco user Tobacco use type: Cigarette Years Smoked: quit 1999 e-Cigarette/Vaping Use: Never Used Second Hand Smoke Exposure: No service: No Current occupational status: employed 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 Range of motion 0-120. Mild tenderness to palpation medial joint line. NVI. Assessment & Plan Assessment & Plan (1) Osteoarthritis of left knee: Code(s): M17.12 - Unilateral primary osteoarthritis, left knee Category: Medical Plan Mr. Medrano this is a 54-year-old male who presents to the office today for evaluation of left knee discomfort. He reports that he had a prior left knee partial meniscectomy performed in February of 2020. Ever since his arthroscopy he reports that the discomfort fluctuates based off of activity levels and he has noticed an increase in waxing and waning edema. He reports that the pain is located along the medial aspect of the knee and is worse with ambulation, walking on incline and going up and downstairs. While in the office today, the patient was enquiring about a 2nd arthroscopy for the left knee. Educated the patient that in the setting of arthritis this would likely not be beneficial. X-rays that were obtained in the office today of the left knee reveal osteoarthritis mainly in the medial compartment where the patient is experiencing the majority of his pain. I did educate the patient that anti-inflammatories are helpful for 1 discomfort occurs. We discussed the role of cortisone injection but the patient deferred at this time stating that his discomfort is not severe. He will follow up p.r.n., sooner if needed. X-rays of the left knee which were obtained while in the office today and were reviewed by me, Makayla Gentile PA-C, revealed osteoarthritis. Orders: Orders 2 XR knee LT 3V Today M25.569 - Pain in unspecified knee Coding Level of Care Code New Pt Level 3 (11057) Diagnoses Osteoarthritis of left knee M17.12
[2024-11-12 13:29] VITALS: BMI 31.6
== END 2024-11-12 13:53 | disposition home or self-care (01) ==
LOC: HO.HOS 13:10
PROVIDERS: PCP Internal Medicine; Visit Provider Physician Assistant
DX: M17.12 Unilateral primary osteoarthritis, left knee (principal)
CPT/HCPCS: 99203

== ENCOUNTER → 2024-11-12 13:14 | Outpatient (BNV) | payer BC, SELFPAY | PROVIDERS: Visit Provider Radiology Diagnostic Radiology | DX: M17.12 Unilateral primary osteoarthritis, left knee (principal) | CPT/HCPCS: 73562 ==